=== PATIENT | female | born 1975 | race Caucasian/White ===

== ENCOUNTER → 2016-04-27 | Outpatient (CLI) | payer MEDICARE, BC ==
[~2016-04-27] MED LIST: ACETAMINOPHEN PO; ALEVE; ALLEGRA PO; AMBIEN PO; AMITIZA; ASPIRIN; ASPIRIN PO; ASTELIN137 MCG INH; AVINZA PO; BACLOFEN10 MG PO; BUTALBITAL; CAFFEINE; CARBATROL300 MG PO; CEPHALEXIN500 M1 PO; CHANTIX1 MG; CLONAZEPAM0.5 MG PO; CYMBALTA PO; DILAUDID PO; ESGIC PLUS PO; FIORINAL CAPSUL1 CAP PO; FLEXERIL PO; GABAPENTIN300 MG PO; IMITREX PO; INDOCIN SR75 MG PO; KLONOPIN0.5 MG PO; LIDODERM30 EA TOP; LORTAB 10/500 T1 TAB PO; LYRICA PO; MEDROL DOSEPAK4 MG PO; MEDROL PO; METHODONE; MIDRIN CAPSULE1 CA1 PO; MOBIC PO; NAPROXEN PO; NASONEX17 GM; NEXIUM PO; NORCO 10-325 TA1 TAB PO; OXYCONTIN 20MG20 MG PO; OXYCONTIN PO; PERCOCET10 PO; PHENERGAN25 M1 PO; PHENERGAN25 MG PO; PRED PAK PO; SAVELLA50 MG PO; SINGULAIR PO; SUDAFED PO; TALWIN NX TABLE1 TAB PO; TEMAZEPAM PO; TREXIMET; ULTRAM PO; WALGREENS PHARM; WALPHED; XYZAL; YASMIN 28 TABLE1 TAB PO; ZANAFLEX PO; ZANAFLEX4 M1 PO; [UNRECOGNIZED DRUG - OTHER]
--- NOTE | ~2016-04-27 | US98 ---
[facility] A Service of [facility] & [facility] RADIOLOGY TEXT RESULTS PATIENT: MATT MENDOZA LOCATION: [facility] : 75 UNIT #: [id number] AGE: [address]: PORFIRIO MOREIRA SEX: F ORDER DR: [id number] [facility] [address] [place], [place] [address] [id number] O MR#: [id number] Acc #: [id number] NAME: MATT MENDOZA : 1975 SEX: F STUDY DATE/TIME: 04/27/2016 8:58 UNIT: [facility] ROOM: STUDY DESCRIPTION: US Pelvic Non-OB Complete Attending Physician: Porfirio Moreira M.D. Ordering Physician: Porfirio Moreira M.D. Primary Care Physician: Joslyn Garcia M.D. MEDICAL IMAGING REPORT This report is preliminary unless electronic signature is present EXAM Transabdominal and transvaginal pelvic ultrasound 04/27/2016 HISTORY Irregular menses for 4 years. Thyroid issues for 3 years. History of ovarian cancer in a maternal grandmother. Last menstrual period 04/04/2016. COMPARISON None. FINDINGS Transabdominal imaging was performed for generalized visualization pelvic structures while transvaginal imaging was performed for more detailed evaluation of the adnexal regions. Uterus measures 9.3 x 4.5 x 5.8 cm. Endometrial bilayer measures up to 1.7 cm thickness, which is just at the upper limits normal for the secretory phase (secretory phase 7-16 mm thickness). On the current study, it has a more trilaminar appearance which can be typically seen in late proliferative phase of a menstrual cycle. No definite focal endometrial lesions are seen. Trace amount fluid is demonstrated within the endometrial canal. No pelvic free fluid is evident. No myometrium lesions are identified. The left ovary measures 1.7 x 2.5 x 1.3 cm and contains a few small follicles, without cystic or solid abnormality. Left ovary demonstrates normal color and spectral Doppler flow. The right ovary measures 2.2 x 1.8 and 1.5 cm without cystic or solid lesion. The right ovary demonstrates normal color and spectral Doppler flow. IMPRESSION 1. Endometrial bilayer thickness measures just slightly above upper STS. [facility] A Service of [facility] & [facility] RADIOLOGY TEXT RESULTS PATIENT: MATT MENDOZA LOCATION: [facility] : 75 UNIT #: [id number] AGE: [address]: PORFIRIO MOREIRA SEX: F ORDER DR: limits normal caliber. This may simply represent a normal variant for this patient between the late proliferative phase and secretory phase of menstrual cycle. No focal endometrial lesion is identified, however. Consider short-term pelvic ultrasound followup in approximately 6 weeks in different phase of menstrual cycle to ensure more normal caliber of the endometrium. Alternatively, if the patient's abnormal menses persist, endometrial sampling could be considered. 2. There is trace fluid within the endometrial canal. 3. Normal sonographic appearance of the ovaries. Dictated by... Reba Dyer M.D. THIS IS AN ELECTRONICALLY VERIFIED REPORT Reba Dyer M.D. at 04/28/2016 11:56 AM Radhames TD: 04/27/2016 12:46 JOB #: [id number] MEDICAL IMAGING REPORT COPY
== END | disposition home or self-care (01) ==
LOC: CWCC 08:38
DX: N92.6 Irregular menstruation, unspecified (principal)
CPT/HCPCS: 76830; 76856

== ENCOUNTER → 2016-05-06 | Outpatient (CLI) | payer MEDICARE, BC ==
--- NOTE | ~2016-05-06 | MY11 ---
[facility] A Service of [facility] RADIOLOGY TEXT RESULTS PATIENT: MATT MENDOZA LOCATION: [facility] : 75 UNIT #: [id number] AGE: [address]: PORFIRIO MOREIRA SEX: F ORDER DR: [id number] [facility] [address] [place], [place] [address] [id number] O MR#: [id number] Acc #: [id number] NAME: MATT MENDOZA. : 1975 SEX: F STUDY DATE/TIME: 05/06/2016 9:38 UNIT: [facility] ROOM: STUDY DESCRIPTION: MY Mammogram Screening Dig John Attending Physician: Porfirio Moreira M.D. Referring Physician: Porfirio Moreira M.D. Ordering Physician: Porfirio Moreira M.D. Primary Care Physician: Joslyn Garcia M.D. MEDICAL IMAGING REPORT This report is preliminary unless electronic signature is present EXAM Digital screening mammogram 05/06/2016, [facility] HISTORY 40-year-old female family history of ovarian cancer in grandmother. Annual screen. COMPARISON Prior outside mammograms now available date 05/29/2013 FINDINGS Digital imaging of each breast was completed utilizing a two-view examination of each breast in craniocaudal and mediolateral-oblique projections. Review and interpretation of digital mammograms include a second review in conjunction with FDA-approved CAD device. There is a normal parenchymal presentation bilaterally consistent with the patient's age. There are no breast masses imaged and no parenchymal asymmetry is visualized. There are no suspicious microcalcifications and I see no focal architectural disturbance. IMPRESSION Negative screening digital mammogram. One-year followup recommended. Patients over the age of 40 are entered into a reminder system with target due date for the next mammogram. A result letter will also be sent to the patient. BIRADS: 1 Negative Dictated by... Shane Hazel M.D. [facility] A Service of [facility] RADIOLOGY TEXT RESULTS PATIENT: MATT MENDOZA LOCATION: [facility] : 75 UNIT #: [id number] AGE: [address]: PORFIRIO MOREIRA SEX: F ORDER DR: THIS IS AN ELECTRONICALLY VERIFIED REPORT Shane Hazel M.D. at 05/10/2016 8:04 AM JBB/linda TD: 05/09/2016 19:08 JOB #: [id number] MEDICAL IMAGING REPORT Page 1 of 1 COPY
== END | disposition home or self-care (01) ==
LOC: CWCC 09:16
DX: Z12.31 Encounter for screening mammogram for malignant neoplasm of breast (principal); Z80.41 Family history of malignant neoplasm of ovary
CPT/HCPCS: G0202